=== PATIENT | female | born 1980 | race Caucasian/White ===

== ENCOUNTER → 2021-10-14 02:38 | Outpatient (CLI) | payer OTHER, SELFPAY ==
--- NOTE | 2021-10-14 08:30 | DI.RAD_ITS ---
Exam(s) XR CHEST 2V PA LATERAL EXAM: XR CHEST 2V PA LATERAL CLINICAL HISTORY: UVEIITS, R/O SARCOID, R/O TB TECHNIQUE: 2D digital imaging was performed. COMPARISON: No exams were available for comparison FINDINGS: MEDIASTINUM: Normal. HEART: Normal. PULMONARY VASCULATURE: Normal. LUNGS: Clear. PLEURAL SPACE: No pleural effusion or pneumothorax. BONE:Slight compression midthoracic vertebral body. Mild degenerative changes in the spine. IMPRESSION: No acute abnormality. DATA REPOSITORY: RADIATION DOSE DELIVERED:
== END ==
PROVIDERS: Visit Provider Ophthalmology Retina Specialist
DX: H20.9 Unspecified iridocyclitis (principal)
CPT/HCPCS: 71046

== ENCOUNTER 2021-10-15 02:02 | Outpatient (CLI) | payer OTHER, SELFPAY ==
[2021-10-16 18:59] LABS: Angiotensin Converting Enzyme 20 U/L (16 - 85)
[2021-10-17 11:29] LABS: TB Interpretation Negative (Negative)
[2021-10-17 21:54] LABS: Syphilis IgG w/Reflex Nonreactive (Nonreactive)
== END 2021-10-15 02:03 | disposition home or self-care (01) ==
LOC: LBO 02:02
PROVIDERS: Visit Provider Ophthalmology Retina Specialist
DX: H30.10 Unspecified disseminated chorioretinal inflammation (principal)
CPT/HCPCS: 36415; 81374; 82164; 85549; 86480; 86780

== ENCOUNTER 2021-10-23 02:23 | Outpatient (CLI) | payer OTHER, SELFPAY ==
[2021-10-25 10:58] LABS: Lysozyme (Muramidase), P 4.1 mcg/mL (2.6 - 6.0)
[2021-11-07 13:14] LABS: HLA-A29 Determination Positive
== END 2021-10-23 02:24 | disposition home or self-care (01) ==
PROVIDERS: Visit Provider Ophthalmology Retina Specialist
DX: H30.10 Unspecified disseminated chorioretinal inflammation (principal)
CPT/HCPCS: 81374; 85549

== ENCOUNTER 2022-01-15 15:45 | Emergency (ER) | payer OTHER, SELFPAY ==
[2022-01-15] VITALS (20 sets, daily range): BP systolic 109–131; BP diastolic 61–69; PULSE 70–103; RESP 14–25; TEMP 37; O2SAT 97–100
--- NOTE | 2022-01-15 15:45 | RT.EKG_ITS ---
APPROVED REPORT Exam: Resting ECG Reason for Exam: increased heart rate Patient Location: E HR:81 bpm ECG Measurements Heart Rate 81 AXIS MN 142 P 57 QRSd 72 QRS 50 QT 345 T 49 QTc 400 Conclusion Sinus rhythm...normal P axis, V-rate 60- 99
[2022-01-15 17:04] LABS: Abs Immature Grans 0.05 10^3/uL (0.0-0.06); Absolute Basophil Count 0.01 10^3/uL (0.0-0.2); Absolute Eosinophil Count 0.01 10^3/uL (0.0-0.7); Absolute Lymphocyte Count 1.49 10^3/uL (1.2-3.4); Absolute Monocyte Count 0.55 10^3/uL (0.1-0.8); Absolute Neutrophil Count 8.13 10^3/uL (1.2-6.7); Basophils % 0.1; Eosinophils % 0.1; HCT 37.5 % (36.0-46.0); HGB 12.1 g/dL (11.2-15.7); Immature Grans % 0.5; Lymphocytes % 14.6; MCH 29.1 pg (27.0-33.0); MCHC 32.3 % (32.0-36.0); MCV 90 fL (80-95); Monocytes % 5.4; Neutrophils % 79.3; Platelet Count 324 10^3/uL (130-400); RBC 4.16 10^6/uL (3.93-5.22); RDW 13.7 % (11.7-14.6); RDW-SD 45.1 fL; WBC 10.24 10^3/uL (4.4-10.8)
[2022-01-15 17:30] LABS: ALT 21 U/L (14-59); AST 11 U/L (15-37); Albumin 3.4 g/dL (3.4-5.0); Alkaline Phosphatase 37 U/L (46-116); BUN 18 mg/dL (7-18); Bilirubin, Total 0.4 mg/dL (0.2-1.0); CREATININE 0.7 mg/dL (0.55-1.02); Calcium 8.9 mg/dL (8.5-10.1); Chloride 104 mmol/L (98-107); Estimated GFR 110.67 (mL/min/1.73m2); Glucose 105 mg/dL (74-106); Potassium 3.9 mmol/L (3.5-5.1); Sodium 139 mmol/L (136-145); TSH (W/Ref FT4) 0.71 uIU/mL (0.36-3.74); Total Protein 6.7 g/dL (6.4-8.2)
--- NOTE | 2022-01-15 18:06 | ED.GENADUL_ITS ---
Discharge Plan Disposition Patient Disposition: HOME Condition: Stable Discharge Details Clinical Impression: Tachycardia Primary Care Provider: Patricia Dumont ED Provider: Priscila Spence Home Meds and New Rx's Prescriptions: Continued prednisone 20 mg Tablet 40 mg PO DAILY adalimumab 10 mg/0.2 mL Syringe Kit 0 mg SUBCUT .COMPLEX Rx Instructions: inject one - 40 mg/0.4 mL syringe every 2 weeks Discharge Instructions Additional Instructions: Please follow-up for your Holter monitor Let your doctor know that you are having some episodes of increased heartbeat, however there is no evidence that this will harm you I recommend reassessment at your appointment on Thursday and recheck with your primary care physician this week Please return should you have any new or worsening symptoms including chest discomfort Limit your caffeine intake and exertion Referrals: Patricia Dumont NP [Primary Care Provider] - Discharge Data Discharge Date/Time-TO BE ENTERED AT DEPARTURE: 01/15/22 18:23 Medical Decision Making Patient appears well Her labs are stable Her exam is stable She gets 1 episode for 3 seconds when she went up into the 140s Patient appears normal Ordered a Holter monitor for outpatient Low suspicion for pulmonary embolism clinically Return precautions discussed and patient expressed understanding Encouraged to follow-up with PCP tomorrow EKG does not show acute abnormality Medical Records Medical records reviewed: Yes I reviewed the patient's medical records. Lab Data Lab results reviewed: Yes I reviewed the patient's lab results. ECG Data Prior ECG tracings: available for review HPI General Date/Time Provider Initiated Documentation: 01/15/22 16:10 . HPI Narrative: This 41-year-old female with history of with recent initiation of Humira and Ativan in the past month presents with reports of intermittent episodes of tachycardia with heart rate in the 120s just prior to arrival. She states that she has sensation of fast heartbeat when the symptoms occur. She denies any headache, chest pain, shortness of breath. She denies any chance of . She denies any fever or chills. She denies cough. She denies any urinary symptoms. She does not drink significant amount of coffee or caffeinated beverages. Related Data Home Medications Medication Instructions Recorded Confirmed adalimumab 10 mg/0.2 mL 0 mg subcut .COMPLEX 01/15/22 01/15/22 subcutaneous syringe kit prednisone 20 mg tablet 40 mg PO DAILY 01/15/22 01/15/22 Allergies Allergy/AdvReac Type Severity Reaction Status Date / Time No Known Allergies Allergy Unverified 01/15/22 16:02 General Stated Complaint: GenMedical PIA: 4 Review of Systems All systems reviewed & are unremarkable except as noted in HPI and below PFSH All Active Problems (Updated 01/15/22 @ 18:16 by CAYLA Elizabeth) Tachycardia (Acute) Family History (Updated 12/11/21 @ 10:12 by Cynthia Riley) Mother Alcohol use disorder Father , 66 Alcohol use disorder Heart disease Sister No problems noted. Sister Alcohol use disorder Sister No problems noted. Maternal Grandfather , 78 Heart disease Paternal Grandfather No problems noted. Maternal Grandmother , 85 Leukemia Paternal Grandmother Hyperlipidemia Stroke Social History (Updated 12/11/21 @ 10:10 by Cynthia Riley) Smoking/Tobacco Use Status: Never Second Hand Exposure: Yes Smoking risk assessment performed?: Yes Alcohol Intake: current Alcohol Intake frequency: 0-2 drinks per day Alcohol type: beer Drug use: Daily Substance use type: marijuana Caregiver/Support person: No Household members: none Housing: apartment Communication Needs: None Do you need help understanding health information?: Never Pets and animals: Yes Pets and animals: cat(s) Sexually active: Yes Do you think of yourself as: straight/heterosexual Current gender identity: female What is your relationship status?: How often do you talk on the phone with friends or family?: three or more times per week How often do you get together with friends or relatives?: once per week How often do you attend hinduism or zoroastrianism services?: decline to answer Do you belong to any clubs or organized social groups?: no Panel score (0-1 are the most socially isolated patients): 1 What type of physical activity do you participate in: walking and bicycling Duration: < 15 minutes/day Frequency: 3-4 times per week Radha/Hinduism: No preference Special radha needs: No Seatbelt use: always Helmet use: Yes Drive intox or ride w/intox driver medic: No Do you feel safe at home: Yes Do you feel safe in your relationship?: Yes Exam Const General: cooperative, comfortable, no acute distress and anxious Eyes Sclera: sclerae normal Resp Effort & Inspection: normal respiratory effort Auscultation: clear to auscultation bilaterally Cardio Rate: regular rate Rhythm: regular rhythm Skin General skin exam: no rashes or lesions noted Neuro General: patient alert and patient oriented x3 Extrem Other: no calf swelling or tenderness Course Vital Signs Vital signs: Vital Signs Temperature 37.0 C 01/15/22 15:52 Pulse 86 01/15/22 15:52 Respiratory Rate 18 01/15/22 15:52 Blood Pressure 131/69 01/15/22 15:52 Pulse Oximetry 98 01/15/22 15:52 Temperature 37.0 C 01/15/22 15:52 Temperature Source Tympanic 01/15/22 15:52 Pulse 79 01/15/22 17:30 Pulse 82 01/15/22 17:40 Respiratory Rate 20 01/15/22 17:40 Respiratory Effort Non-Labored 01/15/22 15:57 Respiratory Depth Normal 01/15/22 15:57 Respiratory Pattern Normal 01/15/22 15:57 Blood Pressure 113/65 01/15/22 17:30 Blood Pressure Mean 76 01/15/22 17:30 Blood Pressure Position Sitting 01/15/22 15:52 Pulse Oximetry 100 01/15/22 17:40 Oxygen Delivery Method Room Air 01/15/22 17:13 Oxygen Flow Rate 0 01/15/22 17:13 Pain Level 0 01/15/22 15:52 Lab/Test Results Lab/Test Results: Laboratory Tests Range/Units 01/15/22 01/15/22 16:45 16:45 WBC (4.4-10.8) 10^3/uL 10.24 RBC (3.93-5.22) 10^6/uL 4.16 Hgb (11.2-15.7) g/dL 12.1 Hct (36.0-46.0) % 37.5 MCV (80-95) fL 90 MCH (27.0-33.0) pg 29.1 MCHC (32.0-36.0) % 32.3 RDW (11.7-14.6) % 13.7 Plt Count (130-400) 10^3/uL 324 MPV (8.0-11.0) fL 9.0 Immature Gran % 0.5 Neutrophils % 79.3 Lymphocytes % 14.6 Monocytes % 5.4 Eosinophils % 0.1 Basophils % 0.1 Nucleated RBC % (0.0-0.3) % 0.0 Absolute Neutrophils (1.2-6.7) 10^3/uL 8.13 H Absolute Lymphocytes (1.2-3.4) 10^3/uL 1.49 Absolute Monocytes (0.1-0.8) 10^3/uL 0.55 Absolute Eosinophils (0.0-0.7) 10^3/uL 0.01 Absolute Basophils (0.0-0.2) 10^3/uL 0.01 Sodium (136-145) mmol/L 139 Potassium (3.5-5.1) mmol/L 3.9 Chloride (98-107) mmol/L 104 Carbon Dioxide (21.0-32.0) mmol/L 29.0 Anion Gap (3-11) mmol/L 6.0 BUN (7-18) mg/dL 18 Creatinine (0.55-1.02) mg/dL 0.7 Est GFR (CKD-EPI 2020) (mL/min/1.73m2) 110.67 Glucose (74-106) mg/dL 105 Calcium (8.5-10.1) mg/dL 8.9 Magnesium (1.8-2.4) mg/dL 2.0 Total Bilirubin (0.2-1.0) mg/dL 0.4 AST (15-37) U/L 11 L ALT (14-59) U/L 21 Alkaline Phosphatase (46-116) U/L 37 L Total Protein (6.4-8.2) g/dL 6.7 Albumin (3.4-5.0) g/dL 3.4 TSH (0.36-3.74) uIU/mL 0.71 PAWSS Have you Been Recently Intoxicated or Drunk Within the Last 30 days?: No Have you Ever Experienced Previous Episodes of Alcohol Withdrawal?: No Have you ever Experienced Withdrawal Seizures?: No Have you ever Experienced Delirium Tremens(DT)s?: No Have you ever undergone Alcohol Rehabilitation Treatment (i.e, inpt ot outpatient treatment programs)?: No Have you ever Experienced Blackouts?: No Have you ever Combined Alcohol with other Downers within the last 90 days?: No Have you ever Combined Alcohol with any other Substance of Abuse during the last 90 days?: No Positive Blood Alcohol level on Presentation? [PCS.BAL]: No Evidence of Increased Autonomic Activity (i.e. HR>120, tremor, sweating, agitation, nausea)?: No Result: 0
--- NOTE | 2022-01-15 18:32 | NUR.NOTE ---
Nursing Note: Faxed to [facility] request order for holter monitor 48 hr to be done RADHA.
== END 2022-01-15 18:23 | disposition home or self-care (01) ==
PROVIDERS: Emergency Provider Physician Assistant; PCP Nurse Practitioner Family
DX: R00.0 Tachycardia, unspecified (principal)
CPT/HCPCS: 36415; 80053; 93005; 99283; 83735; 84443; 85025; 93010; 99282

== ENCOUNTER 2022-01-17 02:02 | Outpatient (RCR) | payer OTHER, SELFPAY ==
--- NOTE | 2022-01-17 08:00 | HOLTER_ITS ---
APPROVED REPORT Conclusion This is a 48-hour Holter monitor ordered for tachycardia Predominant rhythm is sinus with an average heart rate of 83. Minimum was 64, maximum 128 There were very rare isolated ventricular ectopic beats There were very rare isolated atrial premature beats. 2 self-limited atrial runs occurred, the longe st of these was 10 beats in duration There was no atrial fibrillation, no high-grade AV block, no pauses greater than 3 seconds No patient symptoms were reported
== END 2022-02-07 23:59 | disposition home or self-care (01) ==
LOC: RT 02:02
PROVIDERS: PCP Nurse Practitioner Family; Visit Provider Nurse Practitioner Family
DX: R00.0 Tachycardia, unspecified (principal)
CPT/HCPCS: 93225; 93226

== ENCOUNTER → 2022-03-20 02:37 | Outpatient (CLI) | payer OTHER, SELFPAY ==
--- NOTE | 2022-03-20 08:18 | DI.MAMMO_ITS ---
Exam(s) MAMMO SCREENING EXAM: MAMMO SCREENING CLINICAL HISTORY: screening,Z12.39 TECHNIQUE: Bilateral full field digital CC and MLO mammographic images were obtained with 3D tomosyn thesis and utilizing computer aided detection (CAD). COMPARISON: None. FINDINGS: Masses/Architectural Distortion: None seen. Microcalcifications: No suspicious pleomorphic-type are seen. Skin Thickening/Nipple Retraction: None. IMPRESSION: 1. No significant interval change with no specific features of malignancy noted. 2. Unless there is more urgent need, screening mammography is recommended, as per [employer] guidelines. BI-RADS Category 1 - Negative Breast Density - Category B - Scattered areas of fibroglandular density Breast density category C or D implies that the patient has dense breast tissue. Dense breast tissue is very common and is not abnormal but dense breast tissue can make it harder to find cancer on a ma mmogram. Also, dense breast tissue may increase their breast cancer risk. This information about the result of the mammogram report was provided to the patient to raise their awareness. Use this report when you speak with the patient about their risks for breast cancer, which includes their family hist ory. At that time, you may recommend for more screening tests (Ultrasound or MRI) as they might be us eful based on their risk. A negative radiographic report should not delay biopsy if a dominant or clinically suspicious mass is present. Up to ten percent of cancers are not identified on mammography. A negative report may reinforce clinical impression. Adenosis and dense breasts may obscure an underlying neoplasm. False positive reports average 6 to 10%. Patient will receive a letter notifying them of these results.
== END ==
PROVIDERS: PCP Nurse Practitioner Family; Visit Provider Nurse Practitioner Family
DX: Z12.31 Encounter for screening mammogram for malignant neoplasm of breast (principal)
CPT/HCPCS: 77063; 77067

== ENCOUNTER 2022-03-27 03:26 | Outpatient (CLI) | payer OTHER, SELFPAY ==
[2022-03-27 09:07] LABS: Abs Immature Grans 0.03 10^3/uL (0.0-0.06); Absolute Basophil Count 0.03 10^3/uL (0.0-0.2); Absolute Eosinophil Count 0.06 10^3/uL (0.0-0.7); Absolute Lymphocyte Count 1.29 10^3/uL (1.2-3.4); Absolute Neutrophil Count 5.26 10^3/uL (1.2-6.7); Basophils % 0.4; Eosinophils % 0.8; HCT 39.5 % (36.0-46.0); HGB 12.5 g/dL (11.2-15.7); Immature Grans % 0.4; Lymphocytes % 18.2; MCH 28.4 pg (27.0-33.0); MCHC 31.6 % (32.0-36.0); MCV 90 fL (80-95); MPV 9.6 fL (8.0-11.0); Monocytes % 5.7; Neutrophils % 74.5; Platelet Count 268 10^3/uL (130-400); RDW 15.5 % (11.7-14.6); RDW-SD 50.9 fL; WBC 7.07 10^3/uL (4.4-10.8)
[2022-03-27 09:09] LABS: ESR 5 mm/hr (0-20)
[2022-03-27 09:34] LABS: Hemoglobin A1C 5.3 % (<5.7)
[2022-03-27 10:04] LABS: ALT 14 U/L (14-59); AST 16 U/L (15-37); Albumin 3.6 g/dL (3.4-5.0); Alkaline Phosphatase 42 U/L (46-116); Anion Gap 5.6 mmol/L (3-11); BUN 13 mg/dL (7-18); Bilirubin, Total 0.6 mg/dL (0.2-1.0); CO2 27.4 mmol/L (21.0-32.0); CREATININE 0.6 mg/dL (0.55-1.02); Calcium 8.7 mg/dL (8.5-10.1); Calculated LDL 101 mg/dL (<100); Chloride 104 mmol/L (98-107); Cholesterol 192 mg/dL (<200); Estimated GFR 114.86 (mL/min/1.73m2); Glucose 99 mg/dL (74-106); HDL Cholesterol 83 mg/dL (40-60); Sodium 137 mmol/L (136-145); TSH (W/Ref FT4) 1.23 uIU/mL (0.36-3.74); Total Protein 6.9 g/dL (6.4-8.2); Triglyceride 43 mg/dL (<150)
[2022-03-27 10:11] LABS: C-Reactive Protein 0.22 mg/dL (0.0-0.3)
[2022-03-28 09:02] LABS: HBs Antibody, Quant 48.4 mIU/mL (See Note); Hepatitis B Surface Ab Positive (See Note)
[2022-03-28 09:46] LABS: Hepatitis C Ab w Rflx HCV PCR Negative (Negative)
[2022-03-28 11:48] LABS: Lyme Ab w Rflx to Lyme Confirm Negative (Negative)
[2022-03-30 17:32] LABS: Anaplasma phagocytophilum Negative (Negative); B. miyamotoi PCR Negative (Negative); Babesia divergens/MO-1 Negative (Negative); Babesia duncani Negative (Negative); Babesia microti Negative (Negative); Ehrlichia chaffeensis Negative (Negative); Ehrlichia ewingii/canis Negative (Negative); Ehrlichia muris eauclairensis Negative (Negative)
== END 2022-03-27 03:27 | disposition home or self-care (01) ==
LOC: LBO 03:26
PROVIDERS: PCP Nurse Practitioner Family; Visit Provider Nurse Practitioner Family
DX: H20.9 Unspecified iridocyclitis (principal); E66.9 Obesity, unspecified
CPT/HCPCS: 36415; 80053; 80061; 85652; 86706; 86803; 87798; 83036; 84443; 85025; 86140; 86618

== ENCOUNTER 2022-08-07 12:19 | Outpatient (REF) | payer OTHER, SELFPAY ==
--- NOTE | 2022-08-07 08:45 | PAPFT_PTH ---
PATIENT: Giovanna Nelson LOC: [facility] U#:[id number] AGE/SX: 42/F ROOM: RE08/07/[address]: NORMAN Reis : 1980 BED: DIS: 08/07/2022 SPEC #: [id number] RECD: 08/07/22 13:07 STATUS: SALOMÓN REAntoni #: [id number] SHELDON: 08/07/22 08:[address]: Patricia Dumont DEPT: [facility] Cytology RECD BY: Priscila Arizmendi Tissues: 1 - CX/ENDOCX FOR PAP SMEARS Procedures: PAP THIN PREP/UVM Screening HPV DNA PROBE Comments: [id number] (CHLAMYDIA/GC)
[2022-08-08 12:38] LABS: Chlamydia Result Negative (Negative); GC Result Negative (Negative)
== END 2022-08-07 12:20 | disposition home or self-care (01) ==
LOC: LBN 12:19
PROVIDERS: PCP Nurse Practitioner Family; Visit Provider Nurse Practitioner Family
DX: Z11.3 Encounter for screening for infections with a predominantly sexual mode of transmission (principal); Z12.4 Encounter for screening for malignant neoplasm of cervix; Z11.51 Encounter for screening for human papillomavirus (HPV)
CPT/HCPCS: 87491; 87591; 88142; 87624

== ENCOUNTER 2023-03-24 01:33 | Outpatient (CLI) | payer OTHER, SELFPAY ==
[2023-03-24 11:18] LABS: Abs Immature Grans 0.03 10^3/uL (0.0-0.06); Absolute Basophil Count 0.04 10^3/uL (0.0-0.2); Absolute Eosinophil Count 0.16 10^3/uL (0.0-0.7); Absolute Lymphocyte Count 2.18 10^3/uL (1.2-3.4); Absolute Monocyte Count 0.47 10^3/uL (0.1-0.8); Absolute Neutrophil Count 4.65 10^3/uL (1.2-6.7); Basophils % 0.5; Eosinophils % 2.1; HCT 38.7 % (36.0-46.0); HGB 12.4 g/dL (11.2-15.7); Immature Grans % 0.4; MCH 28.5 pg (27.0-33.0); MCV 89 fL (80-95); MPV 9.1 fL (8.0-11.0); Monocytes % 6.2; Neutrophils % 61.8; Platelet Count 346 10^3/uL (130-400); RBC 4.35 10^6/uL (3.93-5.22); RDW 13.2 % (11.7-14.6); RDW-SD 43.2 fL; WBC 7.53 10^3/uL (4.4-10.8)
[2023-03-24 11:53] LABS: ALT 18 U/L (14-59); AST 13 U/L (15-37); Albumin 2.9 g/dL (3.4-5.0); Alkaline Phosphatase 60 U/L (46-116); Anion Gap 6.3 mmol/L (3-11); BUN 6 mg/dL (7-18); Bilirubin, Total 0.5 mg/dL (0.2-1.0); CO2 25.7 mmol/L (21.0-32.0); CREATININE 0.6 mg/dL (0.55-1.02); Calcium 8.8 mg/dL (8.5-10.1); Chloride 105 mmol/L (98-107); Estimated GFR 114.15 (mL/min/1.73m2); Glucose 97 mg/dL (74-106); Sodium 137 mmol/L (136-145)
== END 2023-03-24 01:34 | disposition home or self-care (01) ==
PROVIDERS: PCP Nurse Practitioner Family; Visit Provider Ophthalmology
DX: Z79.899 Other long term (current) drug therapy (principal)
CPT/HCPCS: 36415; 80053; 85025

== ENCOUNTER 2023-06-26 02:35 | Outpatient (CLI) | payer OTHER, SELFPAY ==
[2023-06-26 11:53] LABS: Abs Immature Grans 0.03 10^3/uL (0.0-0.06); Absolute Basophil Count 0.03 10^3/uL (0.0-0.2); Absolute Eosinophil Count 0.11 10^3/uL (0.0-0.7); Absolute Lymphocyte Count 1.66 10^3/uL (1.2-3.4); Absolute Monocyte Count 0.46 10^3/uL (0.1-0.8); Absolute Neutrophil Count 5.52 10^3/uL (1.2-6.7); Basophils % 0.4; Eosinophils % 1.4; HCT 39.8 % (36.0-46.0); HGB 12.6 g/dL (11.2-15.7); Immature Grans % 0.4; Lymphocytes % 21.3; MCH 28.5 pg (27.0-33.0); MCHC 31.7 % (32.0-36.0); MCV 90 fL (80-95); MPV 9.5 fL (8.0-11.0); Monocytes % 5.9; Neutrophils % 70.6; Platelet Count 315 10^3/uL (130-400); RBC 4.42 10^6/uL (3.93-5.22); RDW 13.4 % (11.7-14.6); RDW-SD 44.3 fL; WBC 7.81 10^3/uL (4.4-10.8)
[2023-06-26 12:17] LABS: ALT 10 U/L (14-59); AST 10 U/L (15-37); Albumin 3.2 g/dL (3.4-5.0); Alkaline Phosphatase 56 U/L (46-116); Anion Gap 6.5 mmol/L (3-11); BUN 6 mg/dL (7-18); Bilirubin, Total 0.4 mg/dL (0.2-1.0); CO2 27.5 mmol/L (21.0-32.0); CREATININE 0.6 mg/dL (0.55-1.02); Calcium 8.7 mg/dL (8.5-10.1); Chloride 105 mmol/L (98-107); Estimated GFR 113.44 (mL/min/1.73m2); Glucose 93 mg/dL (74-106); Potassium 4.1 mmol/L (3.5-5.1); Sodium 139 mmol/L (136-145); Total Protein 7.1 g/dL (6.4-8.2)
== END 2023-06-26 02:36 | disposition home or self-care (01) ==
PROVIDERS: PCP Nurse Practitioner Family; Visit Provider Ophthalmology
DX: Z79.899 Other long term (current) drug therapy (principal)
CPT/HCPCS: 36415; 80053; 85025

== ENCOUNTER 2023-10-06 02:19 | Outpatient (CLI) | payer OTHER, SELFPAY ==
[2023-10-06 13:48] LABS: Abs Immature Grans 0.02 10^3/uL (0.0-0.06); Absolute Basophil Count 0.02 10^3/uL (0.0-0.2); Absolute Eosinophil Count 0.09 10^3/uL (0.0-0.7); Absolute Lymphocyte Count 2.09 10^3/uL (1.2-3.4); Absolute Monocyte Count 0.46 10^3/uL (0.1-0.8); Absolute Neutrophil Count 5.04 10^3/uL (1.2-6.7); Basophils % 0.3 %; Eosinophils % 1.2 %; HGB 11.8 g/dL (11.2-15.7); Immature Grans % 0.3 %; Lymphocytes % 27.1 %; MCH 28.4 pg (27.0-33.0); MCHC 31.1 % (32.0-36.0); MCV 92 fL (80-95); MPV 9.4 fL (8.0-11.0); Neutrophils % 65.1 %; Platelet Count 309 10^3/uL (130-400); RBC 4.15 10^6/uL (3.93-5.22); RDW 13.8 % (11.7-14.6); RDW-SD 46.5 fL; WBC 7.72 10^3/uL (4.4-10.8)
[2023-10-06 15:32] LABS: ALT 19 U/L (14-59); AST 15 U/L (15-37); Albumin 3.3 g/dL (3.4-5.0); Alkaline Phosphatase 50 U/L (46-116); Anion Gap 9.1 mmol/L (3-11); BUN 11 mg/dL (7-18); Bilirubin, Total 0.3 mg/dL (0.2-1.0); CO2 24.9 mmol/L (21.0-32.0); CREATININE 0.8 mg/dL (0.55-1.02); Calcium 8.9 mg/dL (8.5-10.1); Chloride 102 mmol/L (98-107); Estimated GFR 93.12 (mL/min/1.73m2); Glucose 88 mg/dL (74-106); Potassium 3.9 mmol/L (3.5-5.1); Sodium 136 mmol/L (136-145); Total Protein 6.9 g/dL (6.4-8.2)
== END 2023-10-06 02:20 | disposition home or self-care (01) ==
PROVIDERS: PCP Nurse Practitioner Family; Referring Provider Ophthalmology; Visit Provider Ophthalmology
DX: Z79.899 Other long term (current) drug therapy (principal)
CPT/HCPCS: 36415; 80053; 85025

== ENCOUNTER 2024-02-11 01:53 | Outpatient (CLI) | payer OTHER, SELFPAY ==
[2024-02-11 10:09] LABS: Abs Immature Grans 0.02 10^3/uL (0.0-0.06); Absolute Basophil Count 0.04 10^3/uL (0.0-0.2); Absolute Lymphocyte Count 2.61 10^3/uL (1.2-3.4); Absolute Monocyte Count 0.44 10^3/uL (0.1-0.8); Absolute Neutrophil Count 4.32 10^3/uL (1.2-6.7); Basophils % 0.5 %; Eosinophils % 1.3 %; HCT 39.6 % (36.0-46.0); HGB 12.8 g/dL (11.2-15.7); Immature Grans % 0.3 %; Lymphocytes % 34.7 %; MCHC 32.3 % (32.0-36.0); MCV 90 fL (80-95); MPV 9.1 fL (8.0-11.0); Monocytes % 5.8 %; Neutrophils % 57.4 %; Platelet Count 334 10^3/uL (130-400); RBC 4.42 10^6/uL (3.93-5.22); RDW 13.2 % (11.7-14.6); RDW-SD 43.1 fL; WBC 7.53 10^3/uL (4.4-10.8)
[2024-02-11 10:22] LABS: ALT 12 U/L (14-59); AST 12 U/L (15-37); Albumin 3.2 g/dL (3.4-5.0); Alkaline Phosphatase 62 U/L (46-116); Anion Gap 4.4 mmol/L (3-11); BUN 7 mg/dL (7-18); Bilirubin, Total 0.44 mg/dL (0.2-1.0); CO2 28.6 mmol/L (21.0-32.0); CREATININE 0.8 mg/dL (0.55-1.02); Calcium 8.8 mg/dL (8.5-10.1); Chloride 104 mmol/L (98-107); Estimated GFR 93.12 (mL/min/1.73m2); Glucose 90 mg/dL (74-106); Sodium 137 mmol/L (136-145); Total Protein 7.1 g/dL (6.4-8.2)
== END 2024-02-11 01:54 | disposition home or self-care (01) ==
PROVIDERS: PCP Nurse Practitioner Family; Visit Provider Ophthalmology
DX: Z79.899 Other long term (current) drug therapy (principal)
CPT/HCPCS: 36415; 80053; 85025

== ENCOUNTER 2024-04-06 01:08 | Outpatient (CLI) | payer OTHER, SELFPAY ==
--- NOTE | 2024-04-06 06:45 | DI.MAMMO_ITS ---
Exam(s) MAMMO SCREENING EXAM: MAMMO SCREENING CLINICAL HISTORY: screening, Z12.39 TECHNIQUE: Bilateral full field digital CC and MLO mammographic images were obtained with 3D tomosyn thesis and utilizing computer aided detection (CAD). COMPARISON: Available for comparison. FINDINGS: Masses/Architectural Distortion: There is a stable nodule in the upper outer quadrant of the right br east. No new nodules are seen. No evidence of architectural distortion is present. Microcalcifications: No suspicious pleomorphic-type are seen. Skin Thickening/Nipple Retraction: None. IMPRESSION: 1. No significant interval change with no specific features of malignancy noted. 2. Unless there is more urgent need, screening mammography is recommended, as per [employer] guidelines. BI-RADS Category 2 - Benign Findings Breast Density - Category B - Scattered areas of fibroglandular density Breast density category C or D implies that the patient has dense breast tissue. Dense breast tissue is very common and is not abnormal but dense breast tissue can make it harder to find cancer on a ma mmogram. Also, dense breast tissue may increase their breast cancer risk. This information about the result of the mammogram report was provided to the patient to raise their awareness. Use this report when you speak with the patient about their risks for breast cancer, which includes their family hist ory. At that time, you may recommend for more screening tests (Ultrasound or MRI) as they might be us eful based on their risk. A negative radiographic report should not delay biopsy if a dominant or clinically suspicious mass is present. Up to ten percent of cancers are not identified on mammography. A negative report may reinforce clinical impression. Adenosis and dense breasts may obscure an underlying neoplasm. False positive reports average 6 to 10%. Patient will receive a letter notifying them of these results.
== END 2024-04-06 01:28 ==
LOC: DI 01:08
PROVIDERS: PCP Nurse Practitioner Family; Visit Provider Nurse Practitioner Family
DX: Z12.31 Encounter for screening mammogram for malignant neoplasm of breast (principal); R92.323 Mammographic fibroglandular density, bilateral breasts; D24.1 Benign neoplasm of right breast
CPT/HCPCS: 77063; 77067

== ENCOUNTER 2024-06-08 03:59 | Outpatient (CLI) | payer OTHER, SELFPAY ==
[2024-06-08 11:22] LABS: Abs Immature Grans 0.02 10^3/uL (0.0-0.06); Absolute Basophil Count 0.04 10^3/uL (0.0-0.2); Absolute Eosinophil Count 0.09 10^3/uL (0.0-0.7); Absolute Lymphocyte Count 1.81 10^3/uL (1.2-3.4); Absolute Monocyte Count 0.41 10^3/uL (0.1-0.8); Absolute Neutrophil Count 5.26 10^3/uL (1.2-6.7); Basophils % 0.5 %; Eosinophils % 1.2 %; HCT 42.8 % (36.0-46.0); HGB 13.2 g/dL (11.2-15.7); Immature Grans % 0.3 %; Lymphocytes % 23.7 %; MCH 28.3 pg (27.0-33.0); MCHC 30.8 % (32.0-36.0); MCV 92 fL (80-95); MPV 9.5 fL (8.0-11.0); Monocytes % 5.4 %; Neutrophils % 68.9 %; Platelet Count 330 10^3/uL (130-400); RBC 4.66 10^6/uL (3.93-5.22); RDW 13.7 % (11.7-14.6); RDW-SD 46.6 fL; WBC 7.63 10^3/uL (4.4-10.8)
[2024-06-08 11:43] LABS: ALT 14 U/L (14-59); AST 12 U/L (15-37); Albumin 3.2 g/dL (3.4-5.0); Alkaline Phosphatase 63 U/L (46-116); Anion Gap 5.1 mmol/L (3-11); BUN 4 mg/dL (7-18); Bilirubin, Total 0.47 mg/dL (0.2-1.0); CO2 27.9 mmol/L (21.0-32.0); CREATININE 0.7 mg/dL (0.55-1.02); Calcium 8.9 mg/dL (8.5-10.1); Chloride 106 mmol/L (98-107); Glucose 95 mg/dL (74-106); Potassium 4.2 mmol/L (3.5-5.1); Sodium 139 mmol/L (136-145)
[2024-06-08 11:51] LABS: Calculated LDL 130 mg/dL (<100); Cholesterol 206 mg/dL (<200); HDL Cholesterol 53 mg/dL (40-60); TSH (W/Ref FT4) 1.97 uIU/mL (0.36-3.74); Triglyceride 115 mg/dL (<150)
[2024-06-08 14:10] LABS: Hemoglobin A1C 5.3 % (<5.7)
[2024-06-08 18:36] LABS: HIV-1/2 Ag & Ab Screen Negative (Negative)
[2024-06-08 18:39] LABS: HBs Antibody, Quant 36.2 mIU/mL (See Note); Hep B Surface Ab Positive (See Note); Hepatitis B Core Antibody Negative (Negative); Hepatitis B Surface Antigen Negative (Negative)
== END 2024-06-08 04:00 | disposition home or self-care (01) ==
PROVIDERS: Ophthalmology; PCP Nurse Practitioner Family; Visit Provider Nurse Practitioner Family
DX: Z11.4 Encounter for screening for human immunodeficiency virus [HIV] (principal); Z00.00 Encounter for general adult medical examination without abnormal findings; Z11.59 Encounter for screening for other viral diseases; E66.813 Obesity, class 3; E66.01 Morbid (severe) obesity due to excess calories; Z68.43 Body mass index [BMI] 50.0-59.9, adult; H30.893 Other chorioretinal inflammations, bilateral; Z79.899 Other long term (current) drug therapy
CPT/HCPCS: 36415; 80053; 80061; 86704; 86706; 87340; 87389; 83036; 84443; 85025

== ENCOUNTER 2024-10-31 03:07 | Outpatient (CLI) | payer OTHER, SELFPAY ==
[2024-10-31 12:19] LABS: Abs Immature Grans 0.03 10^3/uL (0.0-0.06); Absolute Basophil Count 0.04 10^3/uL (0.0-0.2); Absolute Lymphocyte Count 2.17 10^3/uL (1.2-3.4); Absolute Monocyte Count 0.51 10^3/uL (0.1-0.8); Absolute Neutrophil Count 4.27 10^3/uL (1.2-6.7); Basophils % 0.6 %; Eosinophils % 1.4 %; HCT 38.8 % (36.0-46.0); HGB 12.2 g/dL (11.2-15.7); Immature Grans % 0.4 %; Lymphocytes % 30.5 %; MCH 28.4 pg (27.0-33.0); MCHC 31.4 % (32.0-36.0); MCV 90 fL (80-95); MPV 9.5 fL (8.0-11.0); Monocytes % 7.2 %; Neutrophils % 59.9 %; Platelet Count 302 10^3/uL (130-400); RDW 13.9 % (11.7-14.6); WBC 7.12 10^3/uL (4.4-10.8)
[2024-10-31 12:33] LABS: ALT 21 U/L (14-59); AST 11 U/L (15-37); Alkaline Phosphatase 58 U/L (46-116); Anion Gap 7.9 mmol/L (3-11); BUN 8 mg/dL (7-18); Bilirubin, Total 0.3 mg/dL (0.2-1.0); CO2 28.1 mmol/L (21.0-32.0); CREATININE 0.5 mg/dL (0.55-1.02); Calcium 8.8 mg/dL (8.5-10.1); Chloride 104 mmol/L (98-107); Glucose 91 mg/dL (74-106); Potassium 4.1 mmol/L (3.5-5.1); Sodium 140 mmol/L (136-145); Total Protein 6.3 g/dL (6.4-8.2)
== END 2024-10-31 03:08 | disposition home or self-care (01) ==
PROVIDERS: PCP Nurse Practitioner Family; Visit Provider Ophthalmology
DX: Z79.899 Other long term (current) drug therapy (principal)
CPT/HCPCS: 36415; 80053; 85025

== ENCOUNTER 2025-03-01 01:34 | Outpatient (CLI) | payer OTHER, SELFPAY ==
[2025-03-01 09:09] LABS: Abs Immature Grans 0.02 10^3/uL (0.0-0.06); HCT 38.4 % (36.0-46.0); HGB 12.0 g/dL (11.2-15.7); Immature Grans % 0.3 %; MCH 28.1 pg (27.0-33.0); MCHC 31.3 % (32.0-36.0); MCV 90 fL (80-95); MPV 9.6 fL (8.0-11.0); Platelet Count 262 10^3/uL (130-400); RBC 4.27 10^6/uL (3.93-5.22); RDW 13.5 % (11.7-14.6); RDW-SD 44.9 fL; WBC 7.63 10^3/uL (4.4-10.8)
[2025-03-01 09:53] LABS: ALT 13 U/L (14-59); AST 12 U/L (15-37); Albumin 2.7 g/dL (3.4-5.0); Alkaline Phosphatase 54 U/L (46-116); Anion Gap 7.2 mmol/L (3-11); BUN 10 mg/dL (7-18); Bilirubin, Total 0.3 mg/dL (0.2-1.0); CO2 26.8 mmol/L (21.0-32.0); Calcium 8.8 mg/dL (8.5-10.1); Chloride 105 mmol/L (98-107); Estimated GFR 112.73 (mL/min/1.73m2); Glucose 93 mg/dL (74-106); Potassium 4.2 mmol/L (3.5-5.1); Sodium 139 mmol/L (136-145); Total Protein 6.5 g/dL (6.4-8.2)
== END 2025-03-01 01:35 | disposition home or self-care (01) ==
PROVIDERS: PCP Nurse Practitioner Family; Visit Provider Ophthalmology
DX: Z79.899 Other long term (current) drug therapy (principal)
CPT/HCPCS: 36415; 80053; 85025